=== PATIENT | male | born 1960 | race Caucasian/White ===

== ENCOUNTER 2017-06-02 07:58 | Day surgery (SDC) | payer BC, SELFPAY ==
--- NOTE | 2017-05-30 09:52 | COLBX_PTH ---
PATIENT: ASHANTI ASHLEY LOC: EN U#:[id number] AGE/SX: 56/M ROOM: RE06/02/[address]: Dr. Cheyanne Franks MD : 1960 BED: DIS: 06/02/2017 SPEC #: [id number] RECD: 06/02/17 15:17 STATUS: JOSE BHAVESH #: [id number] POLO: 05/30/17 09:[address]: Cheyanne Franks DEPT: SURGICAL PATHOLOGY RECD BY: Jonathan Severino ENTERED: 06/03/17 09:19 SP TYPE: COLON BX OTHR DR: Dr. Davion Martinez DO Tissues: Sigmoid colon biopsy Procedures: Surgery Specimen Level IV HEADER OPERATION: Colonoscopy and polypectomy PRE-OP DIAGNOSIS: Screening TISSUE SUBMITTED: Distal sigmoid polyp MICROSCOPIC DIAGNOSIS Distal sigmoid colon polyp, biopsy: Benign mucosal polyp with changes of recent hemorrhage and cautery artifact. AM:jan 06/04/17 COMMENT Adenomatous changes is not identified. Clinical correlation is suggested. MICROSCOPIC DESCRIPTION Slides are reviewed. GROSS DESCRIPTION Received in fixative is one container labeled with the patient's name and designated distal sigmoid polyp. The specimen consists of one irregular fragment of light gonzalez soft tissue that measures 0.3 x 0.2 x 0.1 cm. The specimen is totally submitted in one cassette. / SJ:jan 06/03/17 TC:5 CPT: 58837
[2017-06-02 08:31] VITALS: BP 162/83; PULSE 60; RESP 16; TEMP 36.3; O2SAT 98; BMI 30.6
[2017-06-02 10:05] VITALS: BP 139/80; BP 162/83; PULSE 65; RESP 16; TEMP 36.9; O2SAT 100
[2017-06-02 10:10] VITALS: BP 142/80; BP 162/83; PULSE 72; RESP 16; O2SAT 98
[2017-06-02 10:15] VITALS: BP 145/84; BP 162/83; PULSE 60; RESP 16; O2SAT 99
[2017-06-02 10:20] VITALS: BP 155/84; BP 162/83; PULSE 62; RESP 16; TEMP 36.6; O2SAT 98
[2017-06-02 10:34] VITALS: BP 162/83
--- NOTE | 2017-06-02 13:14 | PCM.OPRPT ---
Report of Operation Date of Procedure: 06/02/17 Pre-Operative Diagnosis: screening for colon cancer Post-Operative Diagnosis: distal sigmoid poly, external hemorrhoids Surgery/Procedure Performed:: colonoscopy with biopsy-snare polypectomy Type of Anesthesia:: MAC Anesthesiologist: Van Marquis Specimen's removed: distal sigmoid polyp Estimated Blood Loss (mL): minimal Description of Procedure: Procedure: Colonoscopy After reviewing the risks benefits, the patient was deemed in satisfactory condition to undergo procedure. After obtaining informed consent, the scope was passed under direct visualization. Throughout the procedure, the patient's blood pressure pulse and position saturations were monitored continuously anesthesia. The colonoscope was introduced through the anus and advanced to the cecum, identified by the appendiceal orifice, IC valve and transillumination. The colonoscopy was performed without difficulty. The patient tolerated procedure well. Quality of bowel prep was good. Findings: The perianal and digital rectal exam revealed external hemorrhoids. Small polyp was removed with the snare polypectomy in the distal sigmoid. Otherwise the colon (entire examined portion) appeared normal. Retroflexed view of the distal rectum and anal verge was normal and showed no anal or rectal abnormalities Impression: 1. Distal sigmoid polyp. Biopsied 2. External hemorrhoids Recommendations: Await biopsies Repeat colonoscopy in 3-5 years for screening purposes depending on biopsy - Complications none
== END 2017-06-02 10:34 | disposition home or self-care (01) ==
LOC: EN 07:59 → AC 08:01
PROVIDERS: Family Provider Family Medicine; PCP Family Medicine; Visit Provider Surgery
PROC: 0DJD8ZZ Inspection of Lower Intestinal Tract, Via Natural or Artificial Opening Endoscopic (ICD-10-PCS; CPT 45378; principal; 2017-06-02 08:55)
DX: Z12.11 Encounter for screening for malignant neoplasm of colon (principal); D12.5 Benign neoplasm of sigmoid colon; K64.4 Residual hemorrhoidal skin tags; I10 Essential (primary) hypertension; E78.5 Hyperlipidemia, unspecified; G47.30 Sleep apnea, unspecified; Z79.82 Long term (current) use of aspirin; Z79.899 Other long term (current) drug therapy; Z87.891 Personal history of nicotine dependence
CPT/HCPCS: 45385; 88305; J7120

== ENCOUNTER → 2020-10-03 15:34 | Outpatient (CLI) | payer BC, SELFPAY ==
--- NOTE | 2020-10-03 15:42 | CT_ITS ---
STUDY: LOW DOSE CT LUNG CANCER SCREENING REASON FOR EXAM: Male, 60 years old. SCREENING FOR LUNG CA. Former smoker. The patient smoked 1 pack per day for 30 years. RADIATION DOSAGE (If Supplied By Facility): CTDIvol = ( 2.39 ) mGy, DLP = ( 76.53 ) mGycm TECHNIQUE: No contrast was administered. Low dose technique was utilized (average mAS-38 and kVp 120). 1.25 mm axial source images with a slice interval of 1.25-mm were reconstructed in lung windows. 2.5 mm axial source images with a slice interval of 2.5-mm were reconstructed in lung windows. 5.0 mm axial source images with a slice interval of 5.0-mm were reconstructed in soft tissue windows. Nodule measured using lung windows on PACS and/or independent workstation with automated measurement of minimum and maximum diameter. Nodule measurement reported as average diameter rounded to the nearest whole number. Growth is defined as an increase ins size of greater than 1.5 mm. COMPARISON: None. NODULES: There is an 8.4 mm x 8 mm nodule in the anterior lateral aspect of the right upper lobe as seen on axial image #74 and coronal image #81. Central calcification is seen within it and most likely represents a calcified granuloma. Emphysema: Emphysematous changes more prominent in the upper lobes. Endobronchial lesion: None Aorta: Calcified atherosclerotic plaques. Coronary arteries: Coronary artery calcification. Heart: Unremarkable. Pulmonary artery: Unremarkable. Mediastinal nodes: Unremarkable. Other chest and abdominal findings: CT/Low Dose CT Lung Screening IMPRESSION: Lung-RADS category 2 - Continue annual screening with LDCT in 12 months. IMPORTANT NOTES FOR USE: ACR Lung-RADS Version 1.1 Assessment Categories Release Date: 2018 Category: Coded 0-4 bases on nodule(s) with highest degree of suspicion. Negative screen is defined as categories 1 and 2; a positive screen is defined as categories 3 and 4. Category 3 and 4A nodules that are unchanged on interval CT should be coded as category 2, and individuals returned to screening in 12 months. Category 4X: Category 3 or 4 nodules with additional imaging findings that increase the suspicion of lung cancer, such as spiculation, GGN that doubles in size in 1 year, enlarged lymph notes, etc. Category Modifiers: S (significant finding unrelated to lung cancer) Electronically Signed: Neil Encarnacion MD at 13:50 EDT , Service support ,
== END ==
PROVIDERS: PCP Family Medicine; Referring Provider Family Medicine; Visit Provider Family Medicine
DX: Z12.2 Encounter for screening for malignant neoplasm of respiratory organs (principal); Z87.891 Personal history of nicotine dependence; C34.90 Malignant neoplasm of unspecified part of unspecified bronchus or lung
CPT/HCPCS: 71271

== ENCOUNTER → 2021-10-16 | Outpatient (CLI) | payer BC, SELFPAY ==
--- NOTE | 2021-10-16 15:45 | CT_ITS ---
STUDY: LOW DOSE CT LUNG CANCER SCREENING REASON FOR EXAM: Male, 61 years old. FOLLOW UP 8MM LUNG NODULE OF RIGHT UPPER LOBE RADIATION DOSAGE (If Supplied By Facility): CTDIvol = ( 3.02 ) mGy, DLP = ( 110.98 ) mGycm TECHNIQUE: No contrast was administered. Low dose technique was utilized (average mAS-38 and kVp 120). 1.25 mm axial source images with a slice interval of 1.25-mm were reconstructed in lung windows. 2.5 mm axial source images with a slice interval of 2.5-mm were reconstructed in lung windows. 5.0 mm axial source images with a slice interval of 5.0-mm were reconstructed in soft tissue windows. COMPARISON: 10/03/2020 NODULES: 10.2 x 8.1 mm nodule in the right upper lobe has mildly increased in size comparing image 126 series 602 of the current study with image 81 of series 601 of the prior study. Irregular border/spiculation is better defined on the current exam, possibly related to different technique on the current exam. There are small calcifications within the nodule. No new pulmonary nodule. Emphysema: Mild centrilobular emphysema predominantly in the upper lung zones. Endobronchial lesion: None Aorta: Nondilated without atherosclerosis. CORONARY ARTERIES: Coronary artery calcification is seen. Heart: Normal size Pulmonary artery: Unremarkable for unopacified technique. Mediastinal nodes: No adenopathy Other chest and abdominal findings: Unremarkable CT/Low Dose CT Lung Screening IMPRESSION: Mildly increased size of right upper lobe nodule since 10/03/2020. Lung-RADS category 4B - Chest CT with or without contrast, PET/CT and/or tissue sampling can be obtained depending on the probability of malignancy and comorbidities. IMPORTANT NOTES FOR USE: ACR Lung-RADS Version 1.1 Assessment Categories Release Date: 2018 Category: Coded 0-4 bases on nodule(s) with highest degree of suspicion. Negative screen is defined as categories 1 and 2; a positive screen is defined as categories 3 and 4. Category 3 and 4A nodules that are unchanged on interval CT should be coded as category 2, and individuals returned to screening in 12 months. Category 4X: Category 3 or 4 nodules with additional imaging findings that increase the suspicion of lung cancer, such as spiculation, GGN that doubles in size in 1 year, enlarged lymph notes, etc. Category Modifiers: S (significant finding unrelated to lung cancer) Electronically Signed: Francois Wilder MD (Brooks) at 9:32 EDT Reading Location ID and State: [address] [place] [address] , Service support ,
== END | disposition home or self-care (01) ==
LOC: CT 15:43
PROVIDERS: PCP Family Medicine; Visit Provider Family Medicine
DX: R91.1 Solitary pulmonary nodule (principal); Z87.891 Personal history of nicotine dependence
CPT/HCPCS: 71271

== ENCOUNTER → 2021-10-24 | Outpatient (CLI) | payer BC, SELFPAY ==
--- NOTE | 2021-10-24 17:15 | PET_ITS ---
PROCEDURE: WHOLE BODY PET/CT SCAN, MID SKULL TO MID THIGH REASON FOR EXAM: Solitary pulmonary nodule, increasing in size COMPARISON EXAMINATION: Low dose CT 10/16/2021. TECHNIQUE: Following the intravenous administration of 11.7 mCi of F-18 FDG, multiplanar imaging acquisitions of the neck, chest, abdomen/pelvis to the mid thigh, obtained at 1 hour post radiopharmaceutical administration. Interpretation is with co-registeration of similar anatomic distribution of CT. Findings: Normal and physiologic distribution of radioisotope identified in the expected intensity of the hepatic and splenic parenchyma, urinary tract and gastrointestinal structures. There is gross anatomic distribution of the intracranial contents. INDEX LESION SIZE SUV INTERPRETATION: 1. None CT portion of the exam: 10 mm x 8 mm nodule in the right upper lobe with central, punctate calcifications again identified, unchanged since recent CT. No abnormal FDG activity (SUV 0.7). There is no demonstrated pleural abnormality. There are calcifications of the coronary arteries. There are calcifications of the coronary arteries. Normal mediastinum. Normal hilar regions. Normal unenhanced pulmonary arteries. There is atherosclerotic calcification of the aortic arch with tortuosity and elongation of the aortic arch and descending thoracic aorta. Normal liver. Normal gallbladder and extrahepatic biliary system. Normal spleen. Normal pancreas. Normal bilateral adrenal glands. Normal right kidney. Normal left kidney. Normal visualized stomach. Normal small intestine. Normal colon. There is non-visualization of the appendix. Normal abdominal aorta. Normal inferior vena cava. Normal urinary bladder. There are prostatic calcifications. No destructive bony process. PET/PET/CT Tumor Base -Thigh Init IMPRESSION: 1. NEGATIVE EXAMINATION. Right upper lobe pulmonary nodule does NOT meet criteria for viable neoplasm. Recommend follow-up CT or return to low dose CT program to document morphologic stability. 2. Chronic changes, as detailed above. Electronically Signed: Francois Wilder MD ([place]) at 14:23 EDT ,
== END | disposition home or self-care (01) ==
LOC: ONC 15:37
PROVIDERS: PCP Family Medicine; Referring Provider Family Medicine; Visit Provider Family Medicine
DX: R91.1 Solitary pulmonary nodule (principal)
CPT/HCPCS: 78815; A9552

== ENCOUNTER → 2021-12-27 | Outpatient (CLI) | payer BC, SELFPAY ==
--- NOTE | 2021-12-27 08:56 | ART_ITS ---
Reason For Study: ATHEROSCLEROSIS Procedure A bilateral lower extremity continuous wave Doppler with analog waveform analysis and ankle brachial indexes. Left Segmental Pressures Left brachial= 125mmHg. Left posterior tibial artery = 95mmHg. Left dorsalis pedis artery = 98mmHg. The left posterior tibial artery waveforms are monophasic. The left dorsalis pedis waveforms are biphasic. Right Segmental Pressures Right brachial= 132mmHg. Right posterior tibial artery = 124mmHg. Right dorsalis pedis artery = 138mmHg. The right posterior tibial artery waveforms are monophasic. The right dorsalis pedis waveforms are biphasic. Indices The right resting ankle brachial index is 1.05. The right ankle brachial index by the posterior tibial artery is 0.94. The right ankle brachial index by the dorsalis pedis is 1.05. The left resting ankle brachial index is 0.74. The left ankle brachial index by the posterior tibial artery is 0.72. The left ankle brachial index by the dorsalis pedis is 0.74. VL/Ankle Brachial Index Interpretation Summary Right leg normal at rest with ESTEBAN 1.05 and left leg mild occlussive disease wit h ESTEBAN 0.74. Ordering Physician: Margarito Becerra Referring Physician: Davion Martinez Performed By: Mago Fitch RVT, RDCS
== END | disposition home or self-care (01) ==
PROVIDERS: PCP Family Medicine; Referring Provider Surgery Vascular Surgery; Visit Provider Surgery Vascular Surgery
DX: I70.213 Atherosclerosis of native arteries of extremities with intermittent claudication, bilateral legs (principal); I74.5 Embolism and thrombosis of iliac artery; I77.1 Stricture of artery; G43.909 Migraine, unspecified, not intractable, without status migrainosus; E78.00 Pure hypercholesterolemia, unspecified; I10 Essential (primary) hypertension; M19.90 Unspecified osteoarthritis, unspecified site
CPT/HCPCS: 93922

== ENCOUNTER 2022-07-03 06:57 | Day surgery (SDC) | payer BC, SELFPAY ==
[2022-07-03] VITALS (8 sets, daily range): BP systolic 106–139; BP diastolic 65–72; PULSE 48–68; RESP 16–18; TEMP 36.3–36.4; O2SAT 97–100; BMI 27.4
[2022-07-03] MEDS: Lactated Ringers 1,000 ML 15 ML IV (07:27)
--- NOTE | 2022-07-03 07:28 | H&P.OPEN ---
HPI - General General Date of Admission: 07/03/22 HPI Narrative ASHANTI ASHLEY, is a 61 M who presents for colonoscopy due to history of colon polyps. Patient last colonoscopy was May 2017. Patient's bowel movements mostly every day occasional have For couple days and then go back to daily. Patient denies any blood. Patient denies any current abdominal pain/nausea/vomiting/reflux. Patient denies any family history of colon cancer. [facility] Medical History (Updated 07/03/22 @ 07:[address] Cheyanne Franks MD) Arthritis Cardiology follow-up encounter Easy bruising Former smoker Gastric reflux Hemorrhoids High cholesterol History of stress test HTN (hypertension) Hyperlipidemia Intermittent claudication of left lower extremity due to atherosclerosis Leg cramps Migraine headache Sleep apnea Wears glasses Home Medications aspirin 81 mg tablet,delayed release (Adult Aspirin Regimen) 81 mg PO DAILY 05/30/17 [History Last Taken 05/27/17 81 MG] carvedilol 12.5 mg tablet (Coreg) 12.5 mg PO BID 05/30/17 [History Last Taken 07/03/22] diltiazem HCl 180 mg capsule,extended release 24 hr 180 mg PO DAILY 05/30/17 [History Last Taken 07/03/22] cilostazol 50 mg tablet 50 mg PO BID 05/17/22 [History Last Taken Unknown] diphenhydramine HCl 25 mg tablet (Allergy (diphenhydramine)) 25 mg PO QHS PRN Sleep 05/17/22 [History Last Taken Unknown] fenofibrate nanocrystallized 145 mg tablet 145 mg PO DAILY 05/17/22 [History Last Taken Unknown] rosuvastatin 20 mg tablet 20 mg PO DAILY 05/17/22 [History Last Taken Unknown] Allergy/AdvReac Type Severity Reaction Status Date / Time codeine Allergy Angioedema Verified 05/21/22 09:24 Family History (Updated 05/21/22 @ 09:23 by Liana Dutta) Brother Colon polyps Surgical History (Updated 06/26/22 @ 14:58 by Daly Orr) History of colonoscopy History of excision of pilonidal cyst Social History Smoking Status: Former smoker Past Medical/Surgical History Planned Operation Planned Operative Procedure/s: COLONOSCOPY Previous Hospitalizations/Surgeries HX Hospitalizations: No HX of Surgeries: PILONIDAL CYST REMOVED APPROXIMATELY 15 VASECTOMY Any Problems With Anesthesia: No You/Your Family Experience Fever (Hyperthermia) With Anes: No Cholinesterase deficiency: No Cardiovascular Hx Chest Pain within Last 2 months: No Hx of Irregular Heartbeat and/or Afib: No Hx Heart Attack: No Hx Congestive Heart Failure: No Hx Rheumatic Fever: No Hx Hypertension: Yes Hx Internal Defibrillator: No Hx Pacemaker: No Hx Cardiac Catheterization: No Hx Cardiac Surgery/Stents/Etc.: No Hx Stress Test: Yes (X2 NEGATIVE) Hx Pain in Legs when Walking/Leg Cramps: Yes (CALVES) Respiratory Chronic Cough: No HX of Shortness of Breath: No Hoarseness: No Hx Chronic Obstructive Pulmonary Disease (COPD): No Hx Asthma: No Hx Emphysema: No Hx Sleep Apnea: No CPAP: No BIPAP: No Hx Respiratory Tract Infection/Cold (presently): No Do You Snore Loudly (louder than talking or can be heard): No Do You Often Feel Tired/ Fatigued/ Sleepy Dring Daytime?: No Has Anyone Observed You Stop Breathing During Sleep?: No Result (for STOP score): Negative Hx Smoking: Yes (QUIT 1 MONTH AGO/1 PACK A DAY) Smoking Status: Former smoker Gastrointestinal Hx Gastroesophageal Reflux: Yes Controlled With Meds: No Hx Gastrointestinal Disorders: No Hx Gastrointestinal Bleed: No Hx Ulcer: No Hx Hiatal Hernia: No Difficulty Chewing/Swallowing: No Special diet followed at home: No Hx Unplanned Weight Loss of 20#: No HX Unplanned Weight Gain of 20#: No Neurological Hx Seizures: No HX Syncope/Blackout Spells/Unconsciousness: No Hx Transient Ischemic Attacks (TIA): No Hx Multiple Sclerosis: No Hx Parkinson's Disease: No Hx Head/Neck Injury: No Hx Headaches: No Hx Back Injury/Pain: Yes (AGING) Restless Legs: No Does patient have nerve stimulator: No Blood Disorder Hx Leukemia: No Bleeding Tendencies: Yes Hx Deep Vein Thrombosis: No Hx High Cholesterol: Yes Blood Transmitted Disease: No Hx Hepatitis: No Hx Cirrhosis: No Hx Anemia: No Hx Blood Disorders: No Genitourinary Hx Renal Disease: No Musculoskeletal Hx Arthritis: Yes (L HIP) Hx Rheumatoid Arthritis: No Hx Gout: No Endocrine Hx Diabetes: No Thyroid Disease: No Hx Steroid Therapy: No Psycho/Social Hx Substance Use: No Hx Alcohol Use: Yes (OCCASIONAL) Hx Anxiety: Yes (OCCASIONAL) Hx Depression: Yes (SEASONAL) Mental Illness: No Hx Dementia: No Miscellaneous Hx Cancer: No Recent Exposure to Contagious Disease: No Hx of C-Diff: No Any Loose Teeth: No Allergies codeine Allergy (Verified 05/21/22 09:24) Angioedema Discharge Is Pt Admitted From a Jail, or a Care Home: No Who Could Help: WILFRIDO From the PAT History Number of Risk Factors: 5 Physical Exam Const alert, oriented x3 and no apparent distress HEENT normocephalic and head/scalp atraumatic Resp normal respiratory effort Cardio regular rate GI soft to palpation and non-tender; Negative for non-distended Palpation: Negative for guarding Extremity no clubbing, cyanosis or edema Neuro CN's II-XII intact bilaterally Psych mental status grossly normal Assessment & Plan Assessment/Plan (1) Hx of colonic polyp: Surgery Risks - Colonoscopy Risks Include but are not Limited To: Risks include but are not limited to: Bleeding, perforation requiring further surgery, inability to complete colonoscopy requiring barium enema.
--- NOTE | 2022-07-03 08:00 | COLBX_PTH ---
PATIENT: ASHANTI ASHLEY LOC: EN U#:[id number] AGE/SX: 61/M ROOM: RE07/03/[address]: Dr. Cheyanne Franks MD : 1960 BED: DIS: 07/03/2022 SPEC #: [id number] RECD: 07/03/22 10:55 STATUS: JOSE RETeodoro #: [id number] POLO: 07/03/22 08:[address]: Cheyanne Franks DEPT: SURGICAL PATHOLOGY RECD BY: Jonathan Marcum ENTERED: 07/03/22 11:12 SP TYPE: COLON BX OTHR DR: Dr. Davion Martinez, DO Tissues: Rectum, NOS Procedures: Surgery Specimen Level IV HEADER OPERATION: Colonoscopy ? open access (MAC), biopsy PRE-OP DIAGNOSIS: History of colonic polyp TISSUE SUBMITTED: Biopsy polyp rectum MICROSCOPIC DIAGNOSIS Rectal polyp, biopsy: Fragments of hyperplastic polyp. AM:jan 07/04/2022 MICROSCOPIC DESCRIPTION Slides are reviewed. GROSS DESCRIPTION Received in fixative is one container labeled with the patient's name and designated biopsy polyp rectum. The specimen consists of multiple irregular fragments of light gonzalez soft tissue that in aggregate measure 1.2 x 0.2 x 0.1 cm. The specimen is totally submitted in one cassette. / SJ:jan 07/03/2022 TC:5 CPT: 71324
--- NOTE | 2022-07-03 08:29 | OP.CCLET_ITS ---
07/03/2022 Davion Martinez [address] [place] [address] Re : Colonoscopy procedure for Richi Vann Dear Dr. Martinez This procedure was performed on Sunday, July 03, 2022. My impressions and recommendations are as follows: Impressions : - One less than 5 mm polyp in the rectum, removed with a cold biopsy forceps. Resected and retrieved. - The examination was otherwise normal on direct and retroflexion views. - Diverticulosis in the sigmoid colon. Recommendations : - Discharge patient to home. - High fiber diet. - Continue present medications. - Await pathology results. - Repeat colonoscopy in 5-10 years for surveillance based on pathology results. My findings are described in the full procedure note, which is enclosed. If I can be of further assistance, please feel free to contact me at Doctor phone number(s): , Work: . Sincerely, MD Cheyanne Salgado MD 07/03/2022 8:26:46 AM This report has been signed electronically.
--- NOTE | 2022-07-03 08:29 | OP.COLON_ITS ---
Patient Name: Richi Vann Procedure Date: 07/03/2022 7:28 AM Date of : 1960 Age: 61 Procedure: Colonoscopy Indications: High risk colon cancer surveillance: Personal history of colonic polyps Providers: Cheyanne Franks MD Medicines: Monitored Anesthesia Care Patient Profile: This is a 61 year old male. Last Colonoscopy: May 2017. Complications: No immediate complications. Procedure: Pre-Anesthesia Assessment: - Prior to the procedure, a History and Physical was performed, and patient medications and allergies were reviewed. The patient's tolerance of previous anesthesia was also reviewed. The risks and benefits of the procedure and the sedation options and risks were discussed with the patient. All questions were answered, and informed consent was obtained. Prior Anticoagulants: The patient has taken aspirin, last dose was 1 day prior to procedure. ASA Grade Assessment: Per anesthesia. After reviewing the risks and benefits, the patient was deemed in satisfactory condition to undergo the procedure. After I obtained informed consent, the scope was passed under direct vision. Throughout the procedure, the patient's blood pressure, pulse, and oxygen saturations were monitored continuously. The colonoscope was introduced through the anus and advanced to the cecum, identified by the appendiceal orifice, ileocecal valve and palpation. The colonoscopy was performed without difficulty. The patient tolerated the procedure well. The quality of the bowel preparation was good. Scope In: 7:58:57 AM Scope Withdrawal Time 0 hours 12 minutes 31 seconds Scope Out: 8:20:18 AM Total Procedure Duration Time 0 hours 21 minutes 21 seconds Findings: The perianal and digital rectal examinations were normal. A less than 5 mm polyp was found in the rectum. The polyp was sessile. The polyp was removed with a cold biopsy forceps. Resection and retrieval were complete. The exam was otherwise without abnormality on direct and retroflexion views. Multiple small-mouthed diverticula were found in the sigmoid colon. Impression: - One less than 5 mm polyp in the rectum, removed with a cold biopsy forceps. Resected and retrieved. - The examination was otherwise normal on direct and retroflexion views. - Diverticulosis in the sigmoid colon. Recommendation: - Discharge patient to home. - High fiber diet. - Continue present medications. - Await pathology results. - Repeat colonoscopy in 5-10 years for surveillance based on pathology results. Procedure Code(s): --- Professional --- 50017, PT, Colonoscopy, flexible; with biopsy, single or multiple Diagnosis Code(s): --- Professional --- Z86.010, Personal history of colonic polyps K62.1, Rectal polyp K57.30, Diverticulosis of large intestine without perforation or abscess without bleeding CPT copyright 2017 [employer]. All rights reserved. The codes documented in this report are preliminary and upon boat painter review may be revised to meet current compliance requirements. MD Cheyanne Salgado MD 07/03/2022 8:26:46 AM This report has been signed electronically. Number of Addenda: 0 Note Initiated On: 07/03/2022 7:28 AM
== END 2022-07-03 09:27 | disposition home or self-care (01) ==
LOC: EN 07:02 → AC 07:02
PROVIDERS: PCP Family Medicine; Referring Provider Family Medicine; Visit Provider Surgery
PROC: 0DJD8ZZ Inspection of Lower Intestinal Tract, Via Natural or Artificial Opening Endoscopic (ICD-10-PCS; CPT 45378; principal; 2022-07-03 07:55)
DX: K57.30 Diverticulosis of large intestine without perforation or abscess without bleeding (principal); K62.1 Rectal polyp; E78.00 Pure hypercholesterolemia, unspecified; G47.30 Sleep apnea, unspecified; K21.9 Gastro-esophageal reflux disease without esophagitis; Z79.899 Other long term (current) drug therapy; Z79.82 Long term (current) use of aspirin; Z79.02 Long term (current) use of antithrombotics/antiplatelets; Z86.010 Personal history of colon polyps; Z87.891 Personal history of nicotine dependence
CPT/HCPCS: 45380; 88305; J7120; J2405

== ENCOUNTER → 2022-10-14 | Outpatient (CLI) | payer BC, SELFPAY ==
--- NOTE | 2022-10-14 07:47 | ART_ITS ---
Reason For Study: stricture of artery Procedure A bilateral lower extremity continuous wave Doppler with analog waveform analysis and ankle brachial indexes. Left Segmental Pressures Left brachial= 121mmHg. Left posterior tibial artery = 99mmHg. Left dorsalis pedis artery = 99mmHg. The left dorsalis pedis waveforms are biphasic. The left posterior tibial artery waveforms are biphasic. Right Segmental Pressures Right brachial= 124mmHg. Right posterior tibial artery = 114mmHg. Right dorsalis pedis artery = 122mmHg. The right dorsalis pedis waveforms are biphasic. The right posterior tibial artery waveforms are biphasic. Indices The right ankle brachial index by the dorsalis pedis is .98. The right ankle brachial index by the posterior tibial artery is .92. The left ankle brachial index by the dorsalis pedis is .8. The left ankle brachial index by the posterior tibial artery is .8. VL/Ankle Brachial Index Interpretation Summary Right normal triphasic and ESTEBAN 0.98. Left mild with biphasic and ESTEBAN 0.80. Ordering Physician: Margarito Becerra Performed By: García Catherine RVT
== END | disposition home or self-care (01) ==
PROVIDERS: PCP Family Medicine; Referring Provider Surgery Vascular Surgery; Visit Provider Surgery Vascular Surgery
DX: I70.213 Atherosclerosis of native arteries of extremities with intermittent claudication, bilateral legs (principal); I74.5 Embolism and thrombosis of iliac artery; I77.1 Stricture of artery; I10 Essential (primary) hypertension
CPT/HCPCS: 93922

== ENCOUNTER → 2022-11-18 | Outpatient (CLI) | payer BC, SELFPAY | END | disposition home or self-care (01) | LOC: BFHLAB 14:11 | PROVIDERS: PCP Family Medicine; Referring Provider Family Medicine; Visit Provider Family Medicine | DX: E87.5 Hyperkalemia (principal) | CPT/HCPCS: 36415; 84132 ==

== ENCOUNTER → 2022-12-04 | Outpatient (CLI) | payer BC, SELFPAY ==
--- NOTE | 2022-12-04 16:41 | CT_ITS ---
STUDY: LOW DOSE CT LUNG CANCER SCREENING REASON FOR EXAM: Male, 62 years old. HSX TOBACCO USE RADIATION DOSAGE (If Supplied By Facility): CTDIvol = ( 3.02 ) mGy, DLP = ( 114.00 ) mGycm TECHNIQUE: No contrast was administered. Low dose technique was utilized (average mAS-38 and kVp 120). 1.25 mm axial source images with a slice interval of 1.25-mm were reconstructed in lung windows. 2.5 mm axial source images with a slice interval of 2.5-mm were reconstructed in lung windows. 5.0 mm axial source images with a slice interval of 5.0-mm were reconstructed in soft tissue windows. COMPARISON: 10/16/2021 Emphysema: Mild emphysema. No change in right upper lobe calcified granuloma. No noncalcified nodule or mass. Endobronchial lesion: None Aorta: Calcified plaque in the aortic arch but no aortic aneurysm. CORONARY ARTERIES: Coronary artery calcification is seen. Heart: No cardiomegaly. Pulmonary artery: Normal Mediastinal nodes: Normal Other chest and abdominal findings: None CT/Low Dose CT Lung Screening IMPRESSION: Lung-RADS category 1 - Continue annual screening with LDCT in 12 months. IMPORTANT NOTES FOR USE: ACR Lung-RADS Version 1.1 Assessment Categories Release Date: 2018 Category: Coded 0-4 bases on nodule(s) with highest degree of suspicion. Negative screen is defined as categories 1 and 2; a positive screen is defined as categories 3 and 4. Category 3 and 4A nodules that are unchanged on interval CT should be coded as category 2, and individuals returned to screening in 12 months. Category 4X: Category 3 or 4 nodules with additional imaging findings that increase the suspicion of lung cancer, such as spiculation, GGN that doubles in size in 1 year, enlarged lymph notes, etc. Category Modifiers: S (significant finding unrelated to lung cancer) Electronically Signed: Abel Ponce MD at 10:40 EDT Reading Location ID and State: [facility] / [place] Tel , Service support ,
== END | disposition home or self-care (01) ==
LOC: CT 16:39
PROVIDERS: PCP Family Medicine; Referring Provider Family Medicine; Visit Provider Family Medicine
DX: Z12.2 Encounter for screening for malignant neoplasm of respiratory organs (principal); Z87.891 Personal history of nicotine dependence
CPT/HCPCS: 71271

== ENCOUNTER → 2023-12-05 | Outpatient (CLI) | payer BC, SELFPAY ==
--- NOTE | 2023-12-05 13:59 | ART_ITS ---
Reason For Study: Stricture of Artery Procedure A bilateral lower extremity continuous wave Doppler with analog waveform analysis and ankle brachial indexes. Left Segmental Pressures Left brachial= 131mmHg. Left posterior tibial artery = 117mmHg. Left dorsalis pedis artery = 111mmHg. Left digit = 89 mmHg. The left posterior tibial artery waveforms are biphasic. The left dorsalis pedis waveforms are biphasic. Right Segmental Pressures Right brachial= 134mmHg. Right posterior tibial artery = 120mmHg. Right dorsalis pedis artery = 142mmHg. Right digit = 81 mmHg. The right posterior tibial artery waveforms are triphasic. The right dorsalis pedis waveforms are triphasic. Indices The right ankle brachial index by the posterior tibial artery is 0.90. The right ankle brachial index by the dorsalis pedis is 1.06. The right digital-brachial index is 0.60. The left ankle brachial index by the posterior tibial artery is 0.87. The left ankle brachial index by the dorsalis pedis is 0.83. The left digital-brachial index is 0.66. VL/Ankle Brachial Index Interpretation Summary Right ESTEBAN _, normal. The left resting ankle-brachial index appears mildly abnor mal. Ordering Physician: Margarito Becerra Referring Physician: Davion Martinez Performed By: Patricio Thomas, SHANNENT
== END | disposition home or self-care (01) ==
LOC: CVS 13:57
PROVIDERS: PCP Family Medicine; Referring Provider Surgery Vascular Surgery; Visit Provider Surgery Vascular Surgery
DX: I70.213 Atherosclerosis of native arteries of extremities with intermittent claudication, bilateral legs (principal); I74.5 Embolism and thrombosis of iliac artery; I77.1 Stricture of artery; I10 Essential (primary) hypertension
CPT/HCPCS: 93922

== ENCOUNTER → 2023-12-17 | Outpatient (CLI) | payer BC, SELFPAY ==
--- NOTE | 2023-12-17 08:09 | CT_ITS ---
STUDY: LOW DOSE CT LUNG CANCER SCREENING REASON FOR EXAM: Male, 63 years old. HX OF NICOTINE DEPENDENCE RADIATION DOSAGE (If Supplied By Facility): CTDIvol = ( 3.02 ) mGy, DLP = ( 105.33 ) mGycm TECHNIQUE: No contrast was administered. Low dose technique was utilized (average mAS-38 and kVp 120). 1.25 mm axial source images with a slice interval of 1.25-mm were reconstructed in lung windows. 2.5 mm axial source images with a slice interval of 2.5-mm were reconstructed in lung windows. 5.0 mm axial source images with a slice interval of 5.0-mm were reconstructed in soft tissue windows. COMPARISON: 12/04/2022 Emphysema: Mild emphysema. No change in right middle lobe calcified granuloma. No noncalcified nodule or mass. Endobronchial lesion: None Aorta: Calcified plaque in the aortic arch but no aortic aneurysm. 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 CORONARY ARTERIES: Coronary artery calcification is seen. Heart: No cardiomegaly. Pulmonary artery: Normal Mediastinal nodes: Normal Other chest and abdominal findings: None CT/Low Dose CT Lung Screening IMPRESSION: Lung-RADS category 1 - Continue annual screening with LDCT in 12 months. IMPORTANT NOTES FOR USE: ACR Lung-RADS Version 1.1 Assessment Categories Release Date: 2018 Category: Coded 0-4 bases on nodule(s) with highest degree of suspicion. Negative screen is defined as categories 1 and 2; a positive screen is defined as categories 3 and 4. Category 3 and 4A nodules that are unchanged on interval CT should be coded as category 2, and individuals returned to screening in 12 months. Category 4X: Category 3 or 4 nodules with additional imaging findings that increase the suspicion of lung cancer, such as spiculation, GGN that doubles in size in 1 year, enlarged lymph notes, etc. Category Modifiers: S (significant finding unrelated to lung cancer) Electronically Signed: Abel Ponce MD at 8:50 EDT ,
== END | disposition home or self-care (01) ==
PROVIDERS: PCP Family Medicine; Referring Provider Family Medicine; Visit Provider Family Medicine
DX: Z12.2 Encounter for screening for malignant neoplasm of respiratory organs (principal); Z87.891 Personal history of nicotine dependence
CPT/HCPCS: 71271

== ENCOUNTER → 2024-01-05 | Outpatient (CLI) | payer BC, SELFPAY ==
--- NOTE | 2024-01-05 13:40 | CDU_ITS ---
Reason For Study: Lt Carotid Bruit Rt. Velocities/BP Lt. Velocities/BP Prox CCA 62/13 cm/sec. Prox CCA 60/15 cm/sec. Mid CCA 62/15 cm/sec. Mid CCA 60/15 cm/sec. Dist CCA 52/13 cm/sec. Dist CCA 43/14 cm/sec. Prox ICA 56/19 cm/sec. Prox ICA 45/18 cm/sec. Mid ICA 70/28 cm/sec. Mid ICA 69/28 cm/sec. Dist ICA 64/17 cm/sec. Dist ICA 70/29 cm/sec. Rt. ICA/CCA = 1.1. Lt. ICA/CCA = 1.2. Prox ECA 99/14 cm/sec. Prox ECA 166/8 cm/sec. Rt. Vert. 40/11 cm/sec. Lt. Vert. 47/15 cm/sec. Right Extracranial There is heterogeneous, irregular atherosclerotic plaque noted in the right common carotid artery. There is heterogeneous, irregular atherosclerotic plaque noted in the right internal carotid artery. There is heterogeneous, irregular atherosclerotic plaque noted in the right external carotid artery. Antegrade flow is noted in the right vertebral artery. Left Extracranial There is heterogeneous, irregular atherosclerotic plaque noted in the left common carotid artery. There is heterogeneous, irregular atherosclerotic plaque noted in the left internal carotid artery. There is heterogeneous, irregular atherosclerotic plaque noted in the left external carotid artery. Antegrade flow is noted in the left vertebral artery. Procedure Carotid Duplex [id number]. This is a Carotid Duplex examination using B-mode, color flow and specral Doppler. Exam performed in department. VL/Carotid Duplex Ultrasound Interpretation Summary Mild (<50%) stenosis right extracranial internal carotid. Mild (<50%) stenosis left extracranial internal carotid. Patent and antegrade vertebrals bilaterally. Ordering Physician: Brit Reveles Referring Physician: Davion Martinez Performed By: Cass Khalil, RDCS, RVT
== END | disposition home or self-care (01) ==
PROVIDERS: PCP Family Medicine; Referring Provider Physician Assistant; Visit Provider Physician Assistant
DX: R09.89 Other specified symptoms and signs involving the circulatory and respiratory systems (principal)
CPT/HCPCS: 93880

== ENCOUNTER → 2024-12-08 | Outpatient (CLI) | payer MEDICARE, OTHER, SELFPAY ==
--- NOTE | 2024-12-08 09:02 | AAAS_ITS ---
Reason For Study Reason For Study: AAA Screening Aorta Measurements Aorta Doppler Measurements Proximal aorta measures2.30 x 2.25cm. in cross-sectional Peak systolic flow velocities within the proximal aorta axis. measure 88.6 cm/sec. Proximal aorta measures2.30cm. in longitudinal axis. Peak systolic flow velocities within the mid aorta measure Mid aorta measures2.06 x 2.21cm. in cross-sectional axis. 50.6 cm/sec. Mid aorta measures2.03cm. in longitudinal axis. Peak systolic flow velocities within the distal aorta Distal aorta measures2.73 x 2.71cm. in cross-sectional axis.measure 43.6 cm/sec. Distal aorta measures2.62cm. in longitudinal axis. Heterogenous irregular plaque noted throughout Distal Aorta. Left Iliac Artery Left iliac artery measures 0.93 x 0.99 cm. in the cross-sectional axis. Left iliac artery measures 0.90 cm. in the longitudinal axis. Peak systolic velocity in the left iliac artery measures 189.8/8.7 cm/sec. Heterogenous irregular plaque noted throughout Lt MASOOD. Right Iliac Artery Right iliac artery measures 0.85 x 0.98 cm. in the cross-sectional axis. Right iliac artery measures 0.87 cm. in the longitudinal axis. Peak systolic velocity in the right iliac artery measures 319.8/22.7 cm/sec. Heterogenous irregular plaque noted throughout Rt MASOOD. Procedure Aorta IVC Iliac vasculature or bypass grafts [id number]. The exam was diagnostic. Exam performed in department. VL/AAA Screening Interpretation Summary Aorta patent, ectasia to 2.73 cm. Right iliac artery with >50% stenosis, normal caliber. Left iliac artery with >50% stenosis, normal caliber. Ordering Physician: Davion Martinez Referring Physician: Davion Martinez Performed By: Patricio Thomas, RVT
== END | disposition home or self-care (01) ==
LOC: CT 08:55 → CVS 09:00
PROVIDERS: PCP Family Medicine; Referring Provider Family Medicine; Visit Provider Family Medicine
DX: Z12.2 Encounter for screening for malignant neoplasm of respiratory organs (principal); Z87.891 Personal history of nicotine dependence; Z13.6 Encounter for screening for cardiovascular disorders
CPT/HCPCS: 76706

== ENCOUNTER → 2024-12-21 | Outpatient (CLI) | payer MEDICARE, OTHER, SELFPAY ==
--- NOTE | 2024-12-21 16:02 | CT_ITS ---
PROCEDURE: LOW DOSE CT LUNG SCREENING 12/21/2024 REASON FOR EXAM: SCREENING Previous smoker. Patient has smoked 1 pack per day for 30+ years. TECHNIQUE: LOW DOSE CT LUNG SCREENING Coronal and Sagittal reconstruction series were provided. One or more dose reduction techniques were used (e.g., Automated exposure control, adjustment of the mA and/or kV according to patient size, use of iterative reconstruction technique). REFERENCE LINK: [employer] Lung-RADS RADIATION DOSE SUMMARY: CTDlvol: 2.39 mGy DLP: 78.32 mGycm COMPARISON: Prior study dated December 17, 2023. FINDINGS: PULMONARY NODULES: (Only nodules >3mm are reported) Nodules described below are on series 1 unless otherwise specified. Pulmonary Nodules: Stable calcified granuloma in the anterior aspect of the right middle lobe. Hardware:None Lymph Nodes:No significant lymph nodes are seen. Heart and Vasculature:The heart is nonenlarged.Atherosclerotic calcifications of the thoracic aorta. Thoracic aorta and pulmonary arteries have normal contours; noncontrast technique limits evaluation. 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 This is a normal anatomical variant. Coronary Artery Calcifications: Present Lungs and Airways: Mild emphysematous changes are present. Pleura:No pleural effusion. Upper Abdomen:Unremarkable Bones:Degenerative changes of the thoracic spine. CT/Low Dose CT Lung Screening IMPRESSION: Stable calcified granuloma in the right middle lobe. Coronary artery calcification (CAC) is is present Lung-RADS Category: 2 BENIGN (BASED ON IMAGING FEATURES OR INDOLENT BEHAVIOR). RECOMMEND 12-MONTH SCREENING LDCT. Other Significant Findings: Reading Location: [facility]
== END | disposition home or self-care (01) ==
LOC: CT 16:01
PROVIDERS: PCP Family Medicine; Referring Provider Family Medicine; Visit Provider Family Medicine
DX: Z12.2 Encounter for screening for malignant neoplasm of respiratory organs (principal); Z87.891 Personal history of nicotine dependence
CPT/HCPCS: 71271

== ENCOUNTER → 2025-01-10 | Outpatient (CLI) | payer MEDICARE, OTHER, SELFPAY ==
--- NOTE | 2025-01-10 09:59 | ART_ITS ---
Reason For Study Reason For Study: Claudication Procedure A bilateral lower extremity continuous wave Doppler with analog waveform analysis,segmental pressures,and ankle brachial indexes with exercise. Left Segmental Pressures Left brachial= 136mmHg. Left high thigh = 117mmHg. Left low thigh = 91mmHg. Left calf = 93mmHg. Left posterior tibial artery = 99mmHg. Left dorsalis pedis artery = 95mmHg. The left posterior tibial artery waveforms are biphasic. The left dorsalis pedis waveforms are biphasic. Right Segmental Pressures Right brachial= 132mmHg. Right posterior tibial artery = 137mmHg. Right dorsalis pedis artery = 124mmHg. Right digit = 79 mmHg. The right posterior tibial artery waveforms are triphasic. The right dorsalis pedis waveforms are triphasic. Indices The right ankle brachial index by the posterior tibial artery is 1.01. The right ankle brachial index by the dorsalis pedis is 0.91. The right digital-brachial index is 0.58. The left ankle brachial index by the posterior tibial artery is 0.73. The left ankle brachial index by the dorsalis pedis is 0.70. The left digital-brachial index is 0.69. VL/Lower Ext Art Exam w/ Exercise Interpretation Summary Right ESTEBAN 1.01, normal. Doppler/PVR waveforms of the right leg normal at rest. TBI diminished, pedal/digit disease vs spasm. Right lower extremity with abnormal response to exercise and post exercise ESTEBAN in the moderate category. Left ESTEBAN 0.73, moderate arterial insufficiency. Doppler/PVR waveforms and segme ntal pressures reveal aorto-iliac, proximal femoral disease. Left lower extremity exhibits no change in response to exercise. Ordering Physician: Brit Reveles Referring Physician: Davion Martinez Performed By: Patricio Thomas RVT
== END | disposition home or self-care (01) ==
LOC: CVS 09:59
PROVIDERS: PCP Family Medicine; Referring Provider Physician Assistant; Visit Provider Physician Assistant
DX: I73.9 Peripheral vascular disease, unspecified (principal)
CPT/HCPCS: 93924